=== PATIENT | male | born 1975 ===

== ENCOUNTER 2017-01-13 08:51 | Emergency (ER) | payer SELFPAY ==
[2017-01-13 09:18] VITALS: BP 136/82; PULSE 80; RESP 16; TEMP 98; O2SAT 99
--- NOTE | 2017-01-13 09:33 | ED PDOC ---
HPI: General Adult Time Seen by Provider: 01/13/17 09:14 Chief Complaint (Nursing): Eye Problem Chief Complaint (Provider): right eye redness History Per: Patient History/Exam Limitations: no limitations Additional Complaint(s): 41yo male complaining of right eye redness 3 days ago. 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 Suspects there is a foreign body on the iris. No blurry vision, eye pain, eye discharge. No left eye complaint. Last tetanus shot unknown. States he had hernia repair in this facility previously. Past Medical History Reviewed: Historical Data, Nursing Documentation, Vital Signs Vital Signs: Last Vital Signs Temp 98 F 01/13/17 09:14 Pulse 80 01/13/17 09:14 Resp 16 01/13/17 09:14 BP 136/82 01/13/17 09:14 Pulse Ox 99 01/13/17 09:39 - Medical History PMH: No Chronic Diseases - Surgical History Surgical History: Hernia Repair - Family History Family History: States: Unknown Family Hx - Social History Current smoker - smoking cessation education provided: No Drugs: Denies - Allergies Allergies/Adverse Reactions: Allergies Allergy/AdvReac Type Severity Reaction Status Date / Time No Known Allergies Allergy Verified 01/13/17 09:14 Review of Systems Eyes: Positive for: Redness. Negative for: Pain, Vision Change, Eyelid Inflammation, Other (eye discharge) Physical Exam - Reviewed Nursing Documentation Reviewed: Yes Vital Signs Reviewed: Yes - Physical Exam Appears: Positive for: Well, Non-toxic, No Acute Distress Head Exam: Positive for: ATRAUMATIC, NORMAL INSPECTION, NORMOCEPHALIC Skin: Positive for: Warm, Dry Eye Exam: Positive for: Other (right eye subconjuctival hemorrhage, no abnormal fluroscein uptake. ) - ECG O2 Sat by Pulse Oximetry: 99 (RA) Pulse Ox Interpretation: Normal Medical Decision Making Medical Decision Making: Explained subconjunctival hemorrhage. Instructed outpatient follow up with ophthalmology. Return if symptoms worsen or new symptoms develop. Disposition - Clinical Impression Clinical Impression: Subconjunctival hemorrhage of right eye - Disposition Referrals: Nikita Jose MD [Staff Provider] - Disposition: Routine/Home Disposition Time: 09:38 Instructions: Subconjunctival Hemorrhage (ED) Print Language: [place] IRISH Additional Comments - Additional Comments Additional Comments: Scribe Attestation: Documented by Waldo De La Cruz acting as a scribe for Angelita Jade MD. Provider Attestation: All medical record entries made by the Scribe were at my direction and personally dictated by me. I have reviewed the chart and agree that the record accurately reflects my personal performance of the history, physical exam, medical decision making, and the department course for this patient. I have also personally directed, reviewed, and agree with the discharge instructions and disposition.
== END 2017-01-13 09:48 | disposition home or self-care (01) ==
LOC: H.ER 08:51
DX: H11.31 Conjunctival hemorrhage, right eye (principal)